=== PATIENT | male | born 1965 | race Caucasian/White ===

== ENCOUNTER → 2016-12-07 | Emergency (ER) | payer SELFPAY ==
[~2016-12-07] MED LIST: ASPIRIN 325 MG TABLET ONE; ASPIRIN 325 MG TABLET PO ONE; CLOPIDOGREL BISULFATE 300 MG TABLET ONE; CLOPIDOGREL BISULFATE 300 MG TABLET PO ONE; DOPAMINE 400 MG/D5W - 250 ML IVPB ONE; FUROSEMIDE 40 MG/4 ML INJECTABLE VIAL IVPUSH ONE; FUROSEMIDE 40 MG/4 ML INJECTABLE VIAL ONE; HEPARIN INFUSION - 500 ML IVPB ONE; HEPARIN INFUSION - 500 ML IVPB SCH; HEPARIN NA (PORCINE) 5,000 UNITS/ML 1ML VIAL IVPUSH PRN; INSULIN REGULAR HUMAN 100 UNITS/ML *VIAL ONE; INSULIN REGULAR HUMAN 100 UNITS/ML *VIAL SQ ONE; NITROGLYCERIN 25MG/D5W 250ML 250 ML IVPB ONE; NITROGLYCERIN 25MG/D5W 250ML 250 ML IVPB SCH; NITROGLYCERIN SUBLINGUAL 1/150 0.4 MG TAB SL ONE; TICAGRELOR 90 MG TABLET PO ONE
--- NOTE | 2016-12-07 19:51 | PDOC ---
History of Present Illness <Usama Baltazar - Last Filed: 12/07/16 20:47> - General History Source: Patient Exam Limitations: No Limitations <Jazzy Mosher - Last Filed: 12/07/16 20:55> - General Chief Complaint: Chest Pain Stated Complaint: CHEST PAIN Time Seen by Provider: 12/07/16 19:50 - History of Present Illness Initial Comments: 12/07/16 20:25 This patient was seen and evaluated immediately upon arrival to the ED and this note was entered at a later point in time. The patient is a 51 year old male, with no significant past medical history, who presents to the emergency department with nonradiating midsternal chest pain since approximately 12:30 PM this afternoon. The patient additionally reports associated shortness of breath. Currently in the ED, the patient rates his pain a 6/10 in severity. The patient denies nausea or vomiting. The patient denies a prior cardiac history and denies a family history of any cardiac diseases or cardiac related issues. Allergies: None reported. Past Surgical History: None reported. Social History: Current everyday smoker (1 pack/day). Denies alcohol or drug use. (Jazzy Mosher) Past History <Usama Baltazar - Last Filed: 12/07/16 20:47> <Jazzy Mosher - Last Filed: 12/07/16 20:55> - Past Medical History Allergies/Adverse Reactions: Allergies Allergy/AdvReac Type Severity Reaction Status Date / Time No Known Allergies Allergy Verified 12/07/16 19:50 Home Medications: Ambulatory Orders NK [No Known Home Medication] 12/07/16 Review of Systems <Usama Baltazar - Last Filed: 12/07/16 20:47> - Review of Systems Able to Perform ROS?: Yes <Jazzy Mosher - Last Filed: 12/07/16 20:55> - Review of Systems Comments:: 12/07/16 20:12 CONSTITUTIONAL: No fever, no chills, no fatigue EYES: No visual changes ENT: No ear pain, no sore throat CARDIOVASCULAR: +Chest pain. No palpitations RESPIRATORY: +SOB. No cough GI: No abdominal pain, no nausea, no vomiting, no constipation, no diarrhea GENITOURINARY: No dysuria, no frequency, no hematuria MUSKULOSKELETAL: No back pain, no joint pain, no myalgias SKIN: No rash NEURO: No headache (Jazzy Mosher) *Physical Exam <Usama Baltazar - Last Filed: 12/07/16 20:47> <Jazzy Mosher - Last Filed: 12/07/16 20:55> - Vital Signs Last Vital Signs Temp Pulse Resp BP Pulse Ox 97.0 F L 100 H 33 H 69/40 94 L 12/07/16 20:30 12/07/16 20:30 12/07/16 20:30 12/07/16 20:30 12/07/16 20:30 - Physical Exam Comments: 12/07/16 20:11 CONSTITUTIONAL: Awake, alert, fully oriented but pale and diaphoretic. HEAD: Normocephalic; atraumatic. EYES: PERRL; EOM intact. ENMT: External appears normal; normal oropharynx. NECK: Supple; non-tender; no cervical lymphadenopathy. CARD: Normal S1, S2; no murmurs, rubs, or gallops. RESP: Dyspneic. Crackles at the lung bases, bilaterally. No wheezes. ABD: Soft, non-distended; non-tender; no palpable organomegaly, no palpable hernias. EXT: Normal ROM in all four extremities; non-tender to palpation; distal pulses intact. SKIN: Warm, dry, no rash. NEURO: No focal neurological deficiencies. (Jazzy Mosher) Heart Score/ECG Review #1 ECG reviewed & interpreted by me at: 19:51 (Vent Rate: 102 bpm. Sinus tachycardia with frequent premature ventricular complexes. Low voltage QRS. Septal infarct, age undetermined. Lateral infarct, possibly acute. ) <Jazzy Mosher - Last Filed: 12/07/16 20:55> ED Treatment Course - LABORATORY CBC & Chemistry Diagram: 12/07/16 20:00 12/07/16 20:00 <Usama Baltazar - Last Filed: 12/07/16 20:47> - LABORATORY CBC & Chemistry Diagram: 12/07/16 20:00 12/07/16 20:00 <Jazzy Mosher - Last Filed: 12/07/16 20:55> - ADDITIONAL ORDERS Additional order review: Laboratory Results 12/07/16 20:00 INR 1.01 12/07/16 20:00 RBC 5.26 MCV 95.9 MCHC 32.6 RDW 14.4 MPV 10.9 Neutrophils % Y Lymphocytes % Y - Medications Given in the ED: ED Medications Discontinued Medications Generic Name Dose Route Start Last Admin Trade Name Anika PRN Reason Stop Dose Admin Aspirin 325 mg 12/07/16 19:58 12/07/16 20:04 Asa - PO 12/07/16 19:59 325 mg ONCE ONE Administration Clopidogrel Bisulfate 600 mg 12/07/16 19:59 12/07/16 20:04 Plavix - PO 12/07/16 20:00 600 mg ONCE ONE Administration Furosemide 40 mg 12/07/16 20:12 12/07/16 20:46 Lasix Injection - IVPUSH 12/07/16 20:13 Not Given ONCE ONE Nitroglycerin 0.4 mg 12/07/16 20:08 12/07/16 20:46 Nitrostat - SL 12/07/16 20:09 0.4 mg ONCE ONE Administration Ticagrelor 180 mg 12/07/16 20:30 12/07/16 20:45 Brilinta - PO 12/07/16 20:31 180 mg ONCE ONE Administration Medical Decision Making <Usama Baltazar - Last Filed: 12/07/16 20:47> - Critical Care Time Total Critical Care Time (minutes): 40 Critical Care Statement: The care of this patient involved high complexity decision making to prevent further life threatening deterioration of the patient 's condition and/or to evalute & treat vital organ system(s) failure or risk of failure. <Jazzy Mosher - Last Filed: 12/07/16 20:55> - Medical Decision Making 12/07/16 20:07 Patient is a 51-year-old male with history of smoking who presents with chest pain that has persisted over the past 7-8 hours. In the ER, patient is pale appearing, diaphoretic and dyspneic with initial blood pressure 140/110, heart rate of 100 and oxygen saturation of 92% on room air. Crackles are noted at the bases bilaterally. EKG reveals sinus tachycardia with ST segment elevations in 1 , aVL, V2, and V3 with ST segment depressions in 2, 3 and aVF, with pathologic Q waves in 1 and aVL as well as V1 and V2 consistent with acute ST segment elevation [place]. Patient was immediately placed on monitor and 2 peripheral IV lines were initiated. Patient was administered aspirin-325 mg by mouth, Plavix- 600 mg by mouth and Proventil into-180 mg by mouth at the request of Dr. Church of [facility] cardiac catheter lab. Patient was also started on heparin drip at 1000 units an hour after administration of 5000 unit bolus. Chest x-ray revealed mild cardiomegaly with cephalization and alveolar edema at the bases. Case was discussed with Dr. Murillo of cardiology. Patient will be emergently transferred to [facility] cardiac lab for emergent cardiac catheter. 12/07/16 20:36 Patient is currently pain free, resting comfortably, on BiPAP at 10/5, rate of 14, 100% FiO2. Blood pressure is noted to be 73/65. Will start dopamine at 5 mcg /kg/min. awaiting transfer. (Usama Baltazar) 12/07/16 20:[address] Oleary at 19:58. Referred to answering service , awaiting callback. Dr. Fair returned call at 20:00, case discussed. (Jazzy Mosher) *DC/Admit/Observation/Transfer - Transfer to Acute Care Facility Receiving Facility: [facility] Accepting Physician:: Dr. Church <Usama Baltazar - Last Filed: 12/07/16 20:47> <Jazzy Mosher - Last Filed: 12/07/16 20:55> Diagnosis at time of Disposition: Acute myocardial infarction Qualifiers: Myocardial infarction ST status: ST elevation myocardial infarction Involved coronary artery: unspecified coronary artery Qualified Code(s): I21.3 - ST elevation (STEMI) myocardial infarction of unspecified site - Discharge Dispostion Disposition: TRANSFER ACUTE CARE/OTHER HOSP Condition at time of disposition: Critical - Transfer to Acute Care Facility Transfer comment: 12/07/16 20:22 consent obtained (Usama Baltazar) - Attestations Scribe Attestion: 12/07/16 20:06 Documentation prepared by Jazzy Mosher, acting as medical claims processor for Usama Baltazar MD. (Jazzy Mosher) Physician Attestion: 12/07/16 20:47 The documentation was prepared by the scribe under my direct supervision. I have reviewed the documentation which correctly represents the findings, medical decision-making and critical action taken by me. (Usama Baltazar)
[2016-12-07 19:52] VITALS: BMI 35.3
[2016-12-07 20:20] LABS: MCH 31.2 pg (25.7-33.7); MCHC 32.6 g/dl (32.0-35.9); MEAN CELL VOLUME 95.9 fl (80-96); MEAN PLT VOLUME 10.9 fl (7.5-11.1); PLATELET COUNT 391 K/MM3 (134-434); RDW 14.4 % (11.9-15.9); WHITE BLOOD COUNT 22.2 K/mm3 (4.0-10.0)
[2016-12-07 20:38] LABS: INR 1.01 (0.82-1.09); PROTHROMBIN TIME (PATIENT) 11.1 SEC (9.98-11.88)
[2016-12-07 20:43] LABS: ALBUMIN 3.7 g/dl (3.4-5.0); BILIRUBIN,TOTAL 0.6 mg/dL (0.2-1.0); CALCIUM 9.2 mg/dL (8.5-10.1); COCKROFT - GAULT 76.22; TOT PROT 7.2 g/dl (6.4-8.2)
[2016-12-07 20:49] VITALS: TEMP 97
[2016-12-07 20:59] LABS: METAMYELOCYTE 1 % (0-2)
[2016-12-07 21:00] LABS: PLATELET COMMENT2 FEW GIANT PLTS; PLATELET ESTIMATE ADEQUATE (NORMAL)
[2016-12-07 21:01] LABS: TROPONIN I 7.56 ng/ml (0.00-0.05)
[2016-12-07 21:18] VITALS: BP 75/40; PULSE 99
--- NOTE | 2016-12-08 09:07 | EKG ---
Test Reason : Blood Pressure : / mmHG Vent. Rate : 102 BPM Atrial Rate : 102 BPM P-R Int : 192 ms QRS Dur : 098 ms QT Int : 362 ms P-R-T Axes : 070 148 066 degrees QTc Int : 471 ms SINUS TACHYCARDIA WITH FREQUENT PREMATURE VENTRICULAR COMPLEXES LOW VOLTAGE QRS SEPTAL INFARCT , AGE UNDETERMINED LATERAL INFARCT , POSSIBLY ACUTE ACUTE AK / STEMI ABNORMAL ECG NO PREVIOUS ECGS AVAILABLE Confirmed by DEBORAH MALDONADO MD ([id number]) on 12/08/2016 9:07:41 AM Referred By: Confirmed By:DEBORAH MALDONADO MD
== END | disposition short-term general hospital (02) ==
LOC: JER 19:44
PROC: 3E013VG Introduction of Insulin into Subcutaneous Tissue, Percutaneous Approach (ICD-10-PCS; principal; 2016-12-07)
DX: I21.3 ST elevation (STEMI) myocardial infarction of unspecified site (principal)
CPT/HCPCS: 36415; 71010-TC; 80053; 82550; 82553; 84484; 85025; 85610; 86850; 86900; 86901; 93005; 93010; 99284-25; J1644